=== PATIENT | female | born 1985 | race Caucasian/White ===

== ENCOUNTER 2017-05-17 15:42 | Emergency (ER) | payer BC, OTHER ==
[2017-05-17 15:47] VITALS: TEMP 98.8
--- NOTE | 2017-05-17 16:19 | EDPHY ---
H & P Stated Complaint: CP SB for a couple weeks Time Seen by Provider: 05/17/17 15:50 HPI/ROS: Chief complaint: Shortness of breath, chest pain History of present illness: This is a 31-year-old female who presents to the emergency department for evaluation of shortness of breath and chest pain. Patient reports the shortness of breath began over the winter. She states she noticed it when she was active, such as skiing or running she become more short of breath usual. It is persisted. It does not occur rest. Over the last few weeks she has developed some chest tightness. This is independent of the shortness of breath, that does not appear to be related, is not exertional. It is an intermittent sharp pain. She denies any precipitating factors for the chest pain. She denies any alleviating factors. Patient denies other associated signs or symptoms including no fevers or cold symptoms, no pain or swelling in the legs. 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 She has not seen a primary care doctor for the problem as of yet but she is scheduled to see one on the 10th of this month, 8 days from now. Review of systems: A 10 point review of systems was obtained and other than described above was negative - Personal History LMP (Females 10-55): 22-28 Days Ago Current Tetanus/Diphtheria Vaccine: Yes Current Tetanus Diphtheria and Acellular Pertussis (TDAP): Yes Tetanus Vaccine Date: < 10 years - Medical/Surgical History Hx Asthma: No Hx Chronic Respiratory Disease: No Hx Diabetes: No Hx Cardiac Disease: No Hx Renal Disease: No Hx Cirrhosis: No Hx Alcoholism: No Hx HIV/AIDS: No Hx Splenectomy or Spleen Trauma: No Other PMH: none reported - Social History Smoking Status: Never smoked - Physical Exam Exam: General Appearance: Alert, nontoxic. Eyes: Pupils equal and round no pallor or injection. ENT, Mouth: Mucous membranes moist. Respiratory: The patient is talking in full sentences. No use of accessory muscles. No adventitious breath sounds. Cardiovascular: Regular rate and rhythm. Gastrointestinal: Abdomen is soft and non tender, no masses, bowel sounds normal. Neurological: Alert and oriented x4. Strength and sensation intact and symmetrical. Skin: Warm and dry, no rashes. Musculoskeletal: Neck is supple non tender. Extremities are symmetrical, full range of motion. Psychiatric: Patient is oriented X 3, there is no agitation. Constitutional: Initial Vital Signs Temperature (C) 37.1 C 05/17/17 15:44 Heart Rate 95 05/17/17 15:44 Respiratory Rate 20 05/17/17 15:44 Blood Pressure 148/106 H 05/17/17 15:44 O2 Sat (%) 99 05/17/17 15:44 O2 Delivery Mode Room Air Allergies/Adverse Reactions: No Known Allergies Allergy (Unverified 05/17/17 15:44) Home Medications: Medication Instructions Recorded Albuterol Sulfate [Proair Hfa] 8.5 gm IH Q4-6PRN PRN #1 [email or web address] 05/17/17 Medical Decision Making ED Course/Re-evaluation: Patient is discussed with my secondary supervising physician Dr. Lauro Polk. Patient presents to the emergency department for shortness of breath that she has suffered from for a number of months and chest discomfort that she has suffered from for a number of weeks. She is nontoxic. Vital signs are stable. Blood studies are unremarkable, EKG unremarkable. Chest x-ray is ordered but she has declined. She understands I cannot rule out significant underlying pathology without this test and she still declines, she is competent to make this decision. She is asking to be discharged home. I will try a trial of an inhaler with her given her history of asthma. She has an appointment in a week with a primary care doctor, she is asked to keep this appointment. Strict return precautions are given. Patient voiced understanding and agreement with plan. Differential Diagnosis: Included but not limited to reactive airway disease, pneumothorax, pulmonary infections cardiac dysrhythmia, reflux disease, anxiety, unlikely ACS - Data Points Laboratory Results: Laboratory Results 05/17/17 16:20 05/17/17 16:20 05/17/17 05/17/17 05/17/17 16:20 16:20 16:20 WBC RBC Hgb Hct MCV MCH MCHC RDW Plt Count MPV Neut % (Auto) Lymph % (Auto) [place] % (Auto) Eos % (Auto) Baso % (Auto) Nucleat RBC Rel Count Absolute Neuts (auto) Absolute Lymphs (auto) Absolute Monos (auto) Absolute Eos (auto) Absolute Basos (auto) Absolute Nucleated RBC Immature Gran % Immature Gran # D-Dimer < 0.27 ug/mLFEU ug/mLFEU (0.00-0.50) Sodium 144 mEq/L mEq/L (135-145) Potassium 3.5 mEq/L mEq/L (3.5-5.2) Chloride 104 mEq/L mEq/L (97-110) Carbon Dioxide 24 mEq/l mEq/l (22-31) Anion Gap 16 mEq/L mEq/L (8-16) BUN 13 mg/dL mg/dL (7-23) Creatinine 0.5 mg/dL L mg/dL (0.6-1.0) Estimated GFR > 60 Glucose 113 mg/dL H mg/dL (70-100) Calcium 9.1 mg/dL mg/dL (8.5-10.4) Troponin I < 0.012 ng/mL ng/mL (0.000-0.034) Beta HCG, Qual NEGATIVE 05/17/17 16:20 WBC 5.62 10^3/uL 10^3/uL (3.80-9.50) RBC 4.79 10^6/uL 10^6/uL (4.18-5.33) Hgb 14.4 g/dL g/dL (12.6-16.3) Hct 41.5 % % (38.0-47.0) MCV 86.6 fL fL (81.5-99.8) MCH 30.1 pg pg (27.9-34.1) MCHC 34.7 g/dL g/dL (32.4-36.7) RDW 12.9 % % (11.5-15.2) Plt Count 272 10^3/uL 10^3/uL (150-400) MPV 9.4 fL fL (8.7-11.7) Neut % (Auto) 60.5 % % (39.3-74.2) Lymph % (Auto) 29.5 % % (15.0-45.0) [place] % (Auto) 8.5 % % (4.5-13.0) Eos % (Auto) 0.9 % % (0.6-7.6) Baso % (Auto) 0.2 % L % (0.3-1.7) Nucleat RBC Rel Count 0.0 % % (0.0-0.2) Absolute Neuts (auto) 3.40 10^3/uL 10^3/uL (1.70-6.50) Absolute Lymphs (auto) 1.66 10^3/uL 10^3/uL (1.00-3.00) Absolute Monos (auto) 0.48 10^3/uL 10^3/uL (0.30-0.80) Absolute Eos (auto) 0.05 10^3/uL 10^3/uL (0.03-0.40) Absolute Basos (auto) 0.01 10^3/uL L 10^3/uL (0.02-0.10) Absolute Nucleated RBC 0.00 10^3/uL 10^3/uL (0-0.01) Immature Gran % 0.4 % % (0.0-1.1) Immature Gran # 0.02 10^3/uL 10^3/uL (0.00-0.10) D-Dimer Sodium Potassium Chloride Carbon Dioxide Anion Gap BUN Creatinine Estimated GFR Glucose Calcium Troponin I Beta HCG, Qual Departure - Departure Disposition: Home, Routine, Self-Care Clinical Impression: Chest pain Qualifiers: Chest pain type: unspecified Qualified Code(s): R07.9 - Chest pain, unspecified Dyspnea Qualifiers: Dyspnea type: unspecified Qualified Code(s): R06.00 - Dyspnea, unspecified Condition: Good Instructions: Chest Pain (ED), Dyspnea (ED) Additional Instructions: Follow-up with a primary care doctor for continued evaluation and care You declined a chest x-ray today If symptoms worsen or new symptoms develop return to the emergency room for recheck Referrals: NONE *PRIMARY CARE P,. [Primary Care Provider] - As per Instructions [facility],. [Clinic] - As per Instructions Prescriptions: Albuterol Sulfate [Proair Hfa] 8.5 gm IH Q4-6PRN PRN #1 [email or web address] PRN Reason: Short Of Breath/Dyspnea
--- NOTE | 2017-05-17 16:25 | CPEKG ---
Heart Rate: 83 RR Interval: 723 P-R Interval: 160 QRSD Interval: 90 QT Interval: 364 QTC Interval: 428 P Pyrites: 56 QRS Pyrites: 87 T Wave Pyrites: 23 EKG Severity - BORDERLINE ECG - EKG Impression: SINUS RHYTHM EKG Impression: PROBABLE LEFT ATRIAL ABNORMALITY Electronically Signed By: Dixon Nuñez 19-May-2017 06:39:53
[2017-05-17 16:33] LABS: PLATELET COUNT 272 10^3/uL (150-400)
[2017-05-17 17:19] VITALS: BP 139/99; PULSE 87; RESP 16; O2SAT 98
== END 2017-05-17 17:42 | disposition home or self-care (01) ==
DX: R06.00 Dyspnea, unspecified (principal); R07.9 Chest pain, unspecified